=== PATIENT | male | born 1990 | race Caucasian/White ===

== ENCOUNTER 2023-01-20 10:14 | Outpatient (REF) | payer OTHER, SELFPAY ==
[2023-01-20 11:10] LABS: MANUAL DIFF FLAG NO
[2023-01-20 12:01] LABS: Basophils Percent Auto 0.7 % (0-2); Eosinophils Absolute Auto 0.1 X10*3/uL (0.0-0.4); Eosinophils Percent Auto 1.5 % (0-4); Hematocrit 43.3 % (42.0-52.0); Hemoglobin 14.2 g/dl (14.0-18.0); Imm Gran Abs Auto 0.01 X10*3/uL (0.00-0.03); Imm Gran Pct Auto 0.2 % (0.0-0.4); Lymphocytes Absolute Auto 1.3 X10*3/uL (1.2-4.9); Lymphocytes Percent Auto 21.4 % (20-40); Mean Corpuscular HGB Conc 32.8 g/dl (31.0-36.0); Mean Corpuscular Hemoglobin 29.2 pg (27.0-33.0); Mean Corpuscular Volume 88.9 fL (80.0-98.0); Mean Platelet Volume 9.6 fL (9.4-12.4); Monocytes Absolute Auto 0.5 X10*3/uL (0.1-1.2); Monocytes Percent Auto 8.3 % (2-11); Neutrophils Absolute Auto 4.2 x10*3/uL (2.0-8.3); Neutrophils Percent Auto 67.9 % (45-73); Platelet Count 307 X10*3/uL (160-400); Red Blood Count 4.87 X10*6/uL (4.60-5.80); White Blood Count 6.1 X10*3/uL (4.8-10.8)
[2023-01-22 23:59] LABS: TS Negative Control Passed; TS Panel A 0; TS Panel B 0; TS Positive Control Passed; TSpotTB Negative (Negative)
[2023-01-24 15:14] LABS: Immunoglobulin G Subclass 1 774 mg/dL (382-929); Immunoglobulin G Subclass 2 216 mg/dL (241-700); Immunoglobulin G Subclass 3 76 mg/dL (22-178); Immunoglobulin G Subclass 4 14.8 mg/dL (4-86); Immunoglobulin G Total 1074 mg/dL (600-1640)
[2023-01-24 20:59] LABS: IgA 281 mg/dL (47-310); IgG 1210 mg/dL (600-1640); IgM 160 mg/dL (50-300)
== END 2023-01-20 10:15 | disposition home or self-care (01) ==
LOC: HO.LAB 10:14
PROVIDERS: PCP Internal Medicine; Visit Provider Internal Medicine Pulmonary Disease
DX: J18.9 Pneumonia, unspecified organism (principal); R91.8 Other nonspecific abnormal finding of lung field; J85.2 Abscess of lung without pneumonia; J45.909 Unspecified asthma, uncomplicated; Z79.2 Long term (current) use of antibiotics; Z91.09 Other allergy status, other than to drugs and biological substances
CPT/HCPCS: 36415; 82784; 82785; 85025; 86003; 86481; 99202

== ENCOUNTER 2023-01-20 10:14 | Outpatient (AMB) | payer OTHER, SELFPAY ==
[2023-01-20 10:16] VITALS: BP 128/60; PULSE 89; O2SAT 99
--- NOTE | 2023-01-20 10:16 | MHC.OFFVIS ---
Intake Vital Signs 01/20/23 10:16 Height 5 ft 9 in Weight 135 lb 9.349 oz BMI 20.0 BP 128/60 Blood Pressure Location Rt brachial Position Sitting Pulse 89 Pulse Source Pulse Oximeter Pulse Oximetry (%) 99 Oxygen Delivery Method Room Air Intake Visit Reasons: Pneumonia Intake Note: Pt reports pain on his right side, coughing up blood and pink phlegm. He went to the ED and disgnosed him with pneumonia and a mass on his left lungs. They gave him antibiotics, but he still has a cough. He no longer is coughing up blood but still is coughing up the pink phlegm, feels shortness of breath, and pain on his right side has gotten better but still uncomfortable. [employer] Required: No Allergies No Known Allergies Allergy (Verified 01/20/23 09:06) HPI Pneumonia HPI Details 32-year-old gentleman, nonsmoker, with underlying history of childhood asthma, now on p.r.n. albuterol employed as [employer] with significant exposure to wooden dust recently evaluated [facility] for concern of 3 months of cough productive of pinkish sputum and a right sided chest pain, particularly with coughing. On CT angio chest no evidence of pulmonary emboli, but what appears to be a a left lower lobe pulmonary abscess. Patient was started on azithromycin and Augmentin and now reports some improvement in his cough. He denies having recent pulmonary function testing or allergy testing. He denies family history of lung disease or immune deficiencies. [facility] Social History (Updated 01/20/23 @ 10:23 by Catie Estrada [facility]) Patient Tobacco Use Status: Never used Tobacco Review of Systems Const Denies daytime sleepiness, Denies excessive sweating, Denies fatigue, Denies fever(s), Denies lethargy, Denies malaise, Denies night sweats, Denies snoring and Denies weight loss Eyes Denies blurry vision and Denies itchy eyes ENT Denies nasal congestion, Denies post nasal drip, Denies sinus pain, Denies sinus pressure and Denies other ( Thrush) Card Denies chest pain, Denies pedal edema, Denies dyspnea, Denies orthopnea and Denies paroxysmal nocturnal dyspnea Resp Reports cough, Denies hemoptysis, Reports excessive phlegm production, Denies dyspnea, Denies snoring and Denies wheezing GI Denies abdominal pain and Denies heartburn Musc Denies myalgias, Denies arthralgias and Denies joint swelling Skin/Breast Denies rash Neuro Denies memory loss and Denies seizure-like activity Psych Denies abnormal sleep pattern, Denies anxiety and Denies memory loss Endo Denies excessive sweating, Denies fatigue and Denies heat intolerance Chase/Lymph Denies easy bruising Aller/Immun Denies itchy eyes, Denies seasonal rhinorrhea and Denies wheezing Physical Exam Vital Signs: Last Vital Signs Pulse 89 01/20/23 10:16 BP 128/60 01/20/23 10:16 Pulse Ox 99 01/20/23 10:16 Oxygen Delivery Method Room Air 01/20/23 10:16 BMI result Body Mass Index 20.0 Const General: no acute distress and alert Nutritional Appearance: not obese Orientation/consciousness: Other orientation findings ( oriented) HEENT Head: Yes atraumatic Eyes General: appearance normal, both eyes and all related structures Sclerae: sclerae normal EOM: EOMs intact bilaterally Neck Neck: Yes supple Lymphatic: no lymphadenopathy noted Resp Effort & Inspection: normal respiratory effort and no use of accessory muscles Auscultation: clear to auscultation bilaterally Cardio Rate: regular rate Rhythm: regular rhythm Heart sounds: no gallops, no murmurs and no rubs Skin General skin exam: other ( warm) Extrem General: No clubbing, No cyanosis and No edema Assessment & Plan Assessment & Plan (1) Environmental allergies: Code(s): Z91.09 - Other allergy status, other than to drugs and biological substances Plan: Will obtain CBC, IgE, hemoglobin levels, and RAST for further evaluation. (2) Pulmonary abscess: Code(s): J85.2 - Abscess of lung without pneumonia Plan: Will treat with Augmentin for total of [address] chest in 5 weeks. (3) Asthma: Code(s): J45.909 - Unspecified asthma, uncomplicated Plan: Will obtain full PFT for further evaluation. Orders: Orders Rast Allergen Today Z91.09 - Other allergy status, other than to drugs and biological substances Complete Blood Count Auto Diff Today Z91.09 - Other allergy status, other than to drugs and biological substances Immunoglobulin G Subclasses Today Z91.09 - Other allergy status, other than to drugs and biological substances Immunoglobulins,IgG IgA IgM Today Z91.09 - Other allergy status, other than to drugs and biological substances T Spot TB Today Z91.09 - Other allergy status, other than to drugs and biological substances CT chest wo IV con 02/13/23 J85.2 - Abscess of lung without pneumonia PFT pulmonary function test Today J45.909 - Unspecified asthma, uncomplicated Medications: New amoxicillin-pot clavulanate 875-125 mg 1 tab PO BID 36 tabs 0RF 18 days Z91.09 - Other allergy status, other than to drugs and biological substances omeprazole 40 mg PO DAILY 30 caps 0RF 30 days Z91.09 - Other allergy status, other than to drugs and biological substances Coding Level of Care Code New Pt Level 4 (44289) Diagnoses Environmental allergies Z91. Pulmonary abscess J85.2 Asthma J45.909
== END 2023-01-20 11:16 | disposition home or self-care (01) ==
PROVIDERS: PCP Internal Medicine; Visit Provider Internal Medicine Pulmonary Disease
DX: R06.09 Other forms of dyspnea (principal)
CPT/HCPCS: 94060; 94727; 94729; 99204

== ENCOUNTER 2023-01-20 10:56 | Outpatient (REF) | payer OTHER, SELFPAY ==
--- NOTE | 2023-01-20 13:59 | PFT_ITS ---
FINDINGS: Forced vital capacity 95%, FEV1 79%, FEV1/FVC ratio is 67. FEF-25/75 is 50%, MVV 64%. Post bronchodilator therapy, there is a slight improvement in FEV1 and FEF-25/75. CONCLUSION: Mild small airway obstructive disorder. There is mild response to bronchodilator therapy. Clinical correlation is recommended. MD TJ Dumas/DAO / [id number]
== END 2023-01-20 10:57 | disposition home or self-care (01) ==
LOC: HO.RESP 10:56
PROVIDERS: Visit Provider Internal Medicine Pulmonary Disease
DX: J45.909 Unspecified asthma, uncomplicated (principal); Z91.09 Other allergy status, other than to drugs and biological substances
CPT/HCPCS: 94010; 94727; 94729

== ENCOUNTER 2023-03-01 14:35 | Outpatient (AMB) | payer OTHER, SELFPAY ==
[2023-03-01 14:42] VITALS: BP 118/72; PULSE 81; O2SAT 98; BMI 21.2
--- NOTE | 2023-03-01 14:42 | MHC.OFFVIS ---
Intake Vital Signs 03/01/23 14:42 Height 5 ft 9 in Weight 143 lb 4.807 oz BMI 21.2 BP 118/72 Blood Pressure Location Lt brachial Position Sitting Pulse 81 Pulse Source Doppler Pulse Oximetry (%) 98 Oxygen Delivery Method Room Air Intake Visit Reasons: S/p ct chest Allergies No Known Allergies Allergy (Verified 03/01/23 14:44) HPI S/p ct chest HPI Details 32-year-old gentleman, nonsmoker, with underlying history of childhood asthma, now on p.r.n. albuterol employed as [employer] with significant exposure to wooden dust recently evaluated [facility] for concern of 3 months of cough productive of pinkish sputum and a right sided chest pain, particularly with coughing.? On CT angio chest no evidence of pulmonary emboli, but what appears to be a a left lower lobe pulmonary abscess.? After the last office visit patient was treated for total of 4 weeks of Augmentin follow-up CT chest was obtained that showed improvement in previously noted pulmonary abscess, but not complete resolution. Patient denies any significant symptoms. Patient also completed immunologic testing that showed mildly reduced IgG 2 level. He also has completed pulmonary function testing that shows underlying reactive airway disease. [facility] Social History Patient Tobacco Use Status: Never used Tobacco Review of Systems Const Denies daytime sleepiness, Denies excessive sweating, Denies fatigue, Denies fever(s), Denies lethargy, Denies malaise, Denies night sweats, Denies snoring and Denies weight loss Eyes Denies blurry vision and Denies itchy eyes ENT Denies nasal congestion, Denies post nasal drip, Denies sinus pain, Denies sinus pressure and Denies other ( Thrush) Card Denies chest pain, Denies pedal edema, Denies dyspnea, Denies orthopnea and Denies paroxysmal nocturnal dyspnea Resp Denies cough, Denies hemoptysis, Denies excessive phlegm production, Denies dyspnea, Denies snoring and Denies wheezing GI Denies abdominal pain and Denies heartburn Musc Denies myalgias, Denies arthralgias and Denies joint swelling Skin/Breast Denies rash Neuro Denies memory loss and Denies seizure-like activity Psych Denies abnormal sleep pattern, Denies anxiety and Denies memory loss Endo Denies excessive sweating, Denies fatigue and Denies heat intolerance Chase/Lymph Denies easy bruising Aller/Immun Denies itchy eyes, Denies seasonal rhinorrhea and Denies wheezing Physical Exam Vital Signs: Last Vital Signs Pulse 81 03/01/23 14:42 BP 118/72 03/01/23 14:42 Pulse Ox 98 03/01/23 14:42 Oxygen Delivery Method Room Air 03/01/23 14:42 BMI result Body Mass Index 21.2 Const General: no acute distress and alert Nutritional Appearance: not obese Orientation/consciousness: Other orientation findings ( oriented) HEENT Head: Yes atraumatic Eyes General: appearance normal, both eyes and all related structures Sclerae: sclerae normal EOM: EOMs intact bilaterally Neck Neck: Yes supple Lymphatic: no lymphadenopathy noted Resp Effort & Inspection: normal respiratory effort and no use of accessory muscles Auscultation: clear to auscultation bilaterally Cardio Rate: regular rate Rhythm: regular rhythm Heart sounds: no gallops, no murmurs and no rubs Skin General skin exam: other ( warm) Extrem General: No clubbing, No cyanosis and No edema Assessment & Plan Assessment & Plan (1) Pulmonary abscess: Code(s): J85.2 - Abscess of lung without pneumonia Plan: Significant improvement, but not complete resolution after 4 weeks of Augmentin, will repeat four week course and repeat CT chest. (2) Asthma: Code(s): J45.909 - Unspecified asthma, uncomplicated Plan: Results of pulmonary function test reviewed, underlying reactive airway disease with no significant symptoms. Continue p.r.n. albuterol MDI. Orders: Orders CT chest wo IV con 04/02/23 J85.2 - Abscess of lung without pneumonia Medications: Changed From amoxicillin-pot clavulanate 875-125 mg 1 tab PO BID 18 days 36 tabs 0RF Z91.09 - Other allergy status, other than to drugs and biological substances To amoxicillin-pot clavulanate 875-125 mg 1 tab PO BID 28 days 56 tabs 0RF Z91.09 - Other allergy status, other than to drugs and biological substances Coding Level of Care Code Est Pt Level 4 (58458) Diagnoses Pulmonary abscess J85.2 Asthma J45.909
== END 2023-03-01 15:25 | disposition home or self-care (01) ==
PROVIDERS: PCP Internal Medicine; Visit Provider Internal Medicine Pulmonary Disease
DX: J85.2 Abscess of lung without pneumonia (principal); J45.909 Unspecified asthma, uncomplicated
CPT/HCPCS: 99214

== ENCOUNTER → 2023-03-01 14:35 | Outpatient (BNVA) | payer OTHER, SELFPAY | PROVIDERS: PCP Internal Medicine; Visit Provider Internal Medicine Pulmonary Disease | DX: J85.2 Abscess of lung without pneumonia (principal); J45.909 Unspecified asthma, uncomplicated | CPT/HCPCS: 99212 ==

== ENCOUNTER 2023-04-12 15:06 | Outpatient (AMB) | payer OTHER, SELFPAY ==
[2023-04-12 15:08] VITALS: BP 119/67; PULSE 91; O2SAT 99; BMI 20.8
--- NOTE | 2023-04-12 15:08 | A.OFFVIS_ITS ---
Intake Vital Signs 04/12/23 15:08 Height 5 ft 9 in Weight 141 lb 1.533 oz BMI 20.8 BP 119/67 Blood Pressure Location Lt brachial Position Sitting Pulse 91 Pulse Source Doppler Pulse Oximetry (%) 99 Oxygen Delivery Method Room Air Intake Visit Reasons: S/p ct chest Allergies No Known Allergies Allergy (Verified 04/12/23 15:09) HPI S/p ct chest HPI Details 32-year-old gentleman, nonsmoker, with u nderlying history of childhood asthma, now on p.r.n. albuterol employed as [employer] with significant exposure to wooden dust recently evaluated [facility] for concern of 3 months of cough productive of pinkish sputum and a right sided chest pain, particularly with coughing.? On CT angio chest no evidence of pulmonary emboli, but what appears to be a a left lower lobe pulmonary abscess.? After the last office visit patient has completed the 2nd Augmentin course and had a follow-up CT chest that shows resolution of fluid component at the site of a prior abscess. He denies any pulmonary related concerns or complaints at this time. [facility] Social History Patient Tobacco Use Status: Never used Tobacco Review of Systems Const Denies daytime sleepiness, Denies excessive sweating, Denies fatigue, Denies fever(s), Denies lethargy, Denies malaise, Denies night sweats, Denies snoring and Denies weight loss Eyes Denies blurry vision and Denies itchy eyes ENT Denies nasal congestion, Denies post nasal drip, Denies sinus pain, Denies sinus pressure and Denies other ( Thrush) Card Denies chest pain, Denies pedal edema, Denies dyspnea, Denies orthopnea and Denies paroxysmal nocturnal dyspnea Resp Denies cough, Denies hemoptysis, Denies excessive phlegm production, Denies dyspnea, Denies snoring and Denies wheezing GI Denies abdominal pain and Denies heartburn Musc Denies myalgias, Denies arthralgias and Denies joint swelling Skin/Breast Denies rash Neuro Denies memory loss and Denies seizure-like activity Psych Denies abnormal sleep pattern, Denies anxiety and Denies memory loss Endo Denies excessive sweating, Denies fatigue and Denies heat intolerance Chase/Lymph Denies easy bruising Aller/Immun Denies itchy eyes, Denies seasonal rhinorrhea and Denies wheezing Physical Exam Vital Signs: Last Vital Signs Pulse 91 04/12/23 15:08 BP 119/67 04/12/23 15:08 Pulse Ox 99 04/12/23 15:08 Oxygen Delivery Method Room Air 04/12/23 15:08 BMI result Body Mass Index 20.8 Const General: no acute distress and alert Nutritional Appearance: not obese Orientation/consciousness: Other orientation findings ( oriented) HEENT Head: Yes atraumatic Eyes General: appearance normal, both eyes and all related structures Sclerae: sclerae normal EOM: EOMs intact bilaterally Neck Neck: Yes supple Lymphatic: no lymphadenopathy noted Resp Effort & Inspection: normal respiratory effort and no use of accessory muscles Auscultation: clear to auscultation bilaterally Cardio Rate: regular rate Rhythm: regular rhythm Heart sounds: no gallops, no murmurs and no rubs Skin General skin exam: other ( warm) Extrem General: No clubbing, No cyanosis and No edema Assessment & Plan Assessment & Plan (1) Pulmonary abscess: Code(s): J85.2 - Abscess of lung without pneumonia Plan: Fluid component resolved on follow-up CT chest. Expect cystic component to be chronic. (2) Asthma: Code(s): J45.909 - Unspecified asthma, uncomplicated Plan: Continue on as needed albuterol MDI. Coding Level of Care Code Est Pt Level 4 (80211) Diagnoses Pulmonary abscess J85.2 Asthma J45.909
== END 2023-04-12 15:34 | disposition home or self-care (01) ==
PROVIDERS: PCP Internal Medicine; Visit Provider Internal Medicine Pulmonary Disease
DX: J85.2 Abscess of lung without pneumonia (principal); J45.909 Unspecified asthma, uncomplicated
CPT/HCPCS: 99214

== ENCOUNTER → 2023-04-12 15:06 | Outpatient (BNVA) | payer OTHER, SELFPAY | PROVIDERS: PCP Internal Medicine; Visit Provider Internal Medicine Pulmonary Disease | DX: J85.2 Abscess of lung without pneumonia (principal); J45.909 Unspecified asthma, uncomplicated; Z79.899 Other long term (current) drug therapy | CPT/HCPCS: 99212 ==